=== PATIENT | male | born 1940 | race Two or more races ===

== ENCOUNTER → 2024-06-16 | Outpatient (CLI) | payer MEDICARE, MEDICAID, SELFPAY ==
[2024-06-16 09:38] LABS: Basophils % (Auto) 0 % (0-2.5); Eosinophils # (Auto) 0.2 Thou/mm3 (0.0-0.5); Eosinophils % (Auto) 3 % (0-10); Hematocrit 35.7 % (41.0-53.0); Hemoglobin 11.5 g/dL (13.5-16.0); Immature Granulocytes % (Auto) 0 % (0-0); Immature Granulocytes Auto 0.03 Thou/mm3 (0.00-0.00); Lymphocytes % (Auto) 28 % (10-50); Mean Corpuscular HGB Conc 32.2 g/dl (31.0-37.0); Mean Corpuscular Hemoglobin 28.6 pg (25.0-35.0); Mean Corpuscular Volume 89 fL (80-100); Monocytes # (Auto) 0.7 Thou/mm3 (0.0-0.8); Monocytes % (Auto) 10 % (0-12); Neutrophils # (Auto) 4.2 Thou/mm3 (1.8-7.7); Neutrophils % (Auto) 58 % (37-80); Nucleated Red Blood Cell % 0 /100 WBC (0); Platelet Count 157 Thou/mm3 (140-440); RDW Standard Deviation 45.1 fL (35.1-43.9); Red Blood Count 4.02 Miln/mm3 (4.50-5.90); White Blood Count 7.2 Thou/mm3 (3.8-10.6)
[2024-06-16 09:58] LABS: Glucose Estimated Average 194 mg/dL (80-131); Hemoglobin A1C 8.4 % Hgb (4.8-6.0)
[2024-06-16 10:02] LABS: Alanine Aminotransferase 17 U/L (10-49); Albumin, Serum 4.1 gm/dL (3.4-4.8); Alkaline Phosphatase 111 U/L (46-116); Anion Gap 6 (7-16); Aspartate Amino Transferase 11 U/L (0-34); BUN/Creatinine Ratio 28 Ratio (12-20); Bilirubin,Direct 0.1 mg/dL (0.0-0.3); Bilirubin,Total 0.3 mg/dL (0.3-1.2); Blood Urea Nitrogen 37 mg/dL (9-23); Calcium 8.5 mg/dL (8.3-10.6); Carbon Dioxide 24.1 mMol/L (20.0-31.0); Cardiac Risk Estimate 2.1 RATIO (4.0-6.7); Chloride 110 mMol/L (98-107); Cholesterol 75 mg/dL (132-200); Creatinine (Component) 1.3 mg/dL (0.6-1.3); Glucose 87 mg/dL (74-106); HDL Cholesterol 35 mg/dL (40-60); LDL Cholesterol,Calculated 14 mg/dL (0-130); Osmolality,Calculated 287 (275-295); Phosphorous 2.9 mg/dL (2.4-5.1); Potassium 5.3 mMol/L (3.4-5.1); Sodium 140 mMol/L (136-145); Total Protein 6.4 gm/dL (5.7-8.2); Triglycerides 128 mg/dL (30-150); eGFR 54 See Note
== END | disposition home or self-care (01) ==
PROVIDERS: PCP Family Medicine; Referring Provider Specialist; Visit Provider Specialist
DX: I11.9 Hypertensive heart disease without heart failure (principal); E11.9 Type 2 diabetes mellitus without complications; E78.2 Mixed hyperlipidemia
CPT/HCPCS: 36415; 80048; 80061; 80076; 83036; 84100; 85025

== ENCOUNTER → 2024-07-22 | Outpatient (CLI) | payer MEDICARE, MEDICAID, SELFPAY ==
--- NOTE | 2024-07-22 10:00 | XR_ITS ---
Examination: MRI cervical spine without intravenous contrast Date and time of exam: July 22, 2024 and 47 hours INDICATIONS: Neck pain radiating to the left shoulder numbness in the left hand beginning one year ago Technique: Multiple axial and sagittal sections of the cervical spine to been obtained. T2 weighted sagittal sections, TR 3, 270, TE 117 T1-weighted sagittal sections, TR 500, TE 11 T1-weighted axial sections, TR 607, TE 12, axial sections TR 18, TE 27 and T2 weighted transverse sections, TR 3920, TE 122. Findings: Reversal normal cervical lordosis Chronic wedging, mild, C4, C5, C6 Diffuse cervical disc desiccation Advanced disc narrowing C5-C6 No localized enlargement cervical cord C2-C3 advanced left neural foraminal stenosis C3-C4 uncinate process hypertrophy with advanced bilateral neural foraminal stenosis C4-C5 severe overall spinal stenosis, 5 mm central subarticular osteophyte disc complex indenting the ventral margin cervical cord with advanced bilateral neural foraminal stenosis C5-C6 severe spinal stenosis, 5 mm central subarticular osteophyte disc complex indenting the ventral margin cervical cord with advanced bilateral neural foraminal stenosis C6-C7 3 mm central subarticular osteophyte disc complex, advanced bilateral neural foraminal stenosis C7-T1 no disc protrusion IMPRESSION: Advanced degenerative disc disease C5-C6 C5, C5-C6 severe spinal stenosis as above
== END | disposition home or self-care (01) ==
PROVIDERS: PCP Orthopaedic Surgery Orthopaedic Trauma; Referring Provider Orthopaedic Surgery Orthopaedic Trauma; Visit Provider Orthopaedic Surgery Orthopaedic Trauma
DX: M50.322 Other cervical disc degeneration at C5-C6 level (principal); M48.02 Spinal stenosis, cervical region
CPT/HCPCS: 72141

== ENCOUNTER → 2024-08-09 | Outpatient (CLI) | payer MEDICARE, MEDICAID, SELFPAY ==
[2024-08-09 10:04] LABS: Collection Type, Urine Clean Catch
[2024-08-09 10:30] LABS: Basophils % (Auto) 0 % (0-2.5); Eosinophils # (Auto) 0.2 Thou/mm3 (0.0-0.5); Eosinophils % (Auto) 3 % (0-10); Hematocrit 35.8 % (41.0-53.0); Hemoglobin 11.8 g/dL (13.5-16.0); Immature Granulocytes % (Auto) 0 % (0-0); Immature Granulocytes Auto 0.02 Thou/mm3 (0.00-0.00); Lymphocytes # (Auto) 1.9 Thou/mm3 (1.0-4.8); Lymphocytes % (Auto) 26 % (10-50); Mean Corpuscular Hemoglobin 28.9 pg (25.0-35.0); Mean Corpuscular Volume 88 fL (80-100); Monocytes # (Auto) 0.7 Thou/mm3 (0.0-0.8); Monocytes % (Auto) 10 % (0-12); Neutrophils # (Auto) 4.4 Thou/mm3 (1.8-7.7); Neutrophils % (Auto) 61 % (37-80); Nucleated Red Blood Cell % 0 /100 WBC (0); Platelet Count 178 Thou/mm3 (140-440); RDW Standard Deviation 44.1 fL (35.1-43.9); Red Blood Count 4.08 Miln/mm3 (4.50-5.90); White Blood Count 7.3 Thou/mm3 (3.8-10.6)
[2024-08-09 10:35] LABS: Bilirubin,Urine Negative (Negative); Blood,Urine Trace (Negative); Clarity,Urine Clear (Clear/Hazy); Color,Urine Lt-Yellow (Lt Yel-Yel); Glucose, Urine 4+ (Negative); Ketones,Urine Negative (Negative); Leukocyte Esterase,Urine Negative (Negative); Nitrite,Urine Negative (Negative); Protein,Urine 1+ (Neg - Trace); RBC,Urine 5 /hpf (0-3); Specific Gravity,Urine 1.016 (1.001-1.035); Squamous Epithelial Cell,Urine 1 /hpf (0-5); Urobilinogen,Urine Negative mg/dL (0.0-1.0); WBC,Urine 1 /hpf (0-5)
[2024-08-09 10:46] LABS: Glucose Estimated Average 177 mg/dL (80-131); Hemoglobin A1C 7.8 % Hgb (4.8-6.0)
[2024-08-09 10:49] LABS: Parathyroid Hormone Intact 89.8 pg/ml (18.5-88.0)
[2024-08-09 10:55] LABS: Albumin, Serum 3.8 gm/dL (3.4-4.8); Anion Gap 8 (7-16); BUN/Creatinine Ratio 31 Ratio (12-20); Blood Urea Nitrogen 40 mg/dL (9-23); Calcium 8.7 mg/dL (8.3-10.6); Calcium (Corrected) 8.9 mg/dL (8.5-10.1); Carbon Dioxide 25.5 mMol/L (20.0-31.0); Chloride 109 mMol/L (98-107); Creatinine (Component) 1.3 mg/dL (0.6-1.3); Glucose 149 mg/dL (74-106); Osmolality,Calculated 295 (275-295); Phosphorous 3.4 mg/dL (2.4-5.1); Potassium 5.3 mMol/L (3.4-5.1); Sodium 142 mMol/L (136-145); eGFR 54 See Note
[2024-08-09 10:56] LABS: Vitamin D 25 Hydroxy Total 29.8 ng/mL (7.3-40.2)
== END | disposition home or self-care (01) ==
LOC: COPL 08:57
PROVIDERS: PCP Internal Medicine; Referring Provider Internal Medicine Nephrology; Visit Provider Internal Medicine Nephrology
DX: E11.22 Type 2 diabetes mellitus with diabetic chronic kidney disease (principal); N18.2 Chronic kidney disease, stage 2 (mild); E55.9 Vitamin D deficiency, unspecified
CPT/HCPCS: 36415; 80069; 81001; 82306; 83036; 83970; 85025

== ENCOUNTER → 2024-08-17 | Outpatient (CLI) | payer MEDICARE, SELFPAY ==
[2024-08-17 09:29] LABS: Prostate Specific Antigen 0.83 ng/mL (0-4.00)
== END | disposition home or self-care (01) ==
PROVIDERS: PCP Urology; Referring Provider Urology; Visit Provider Urology
DX: N40.1 Benign prostatic hyperplasia with lower urinary tract symptoms (principal)
CPT/HCPCS: 36415; 84153

== ENCOUNTER → 2024-09-27 | Outpatient (CLI) | payer MEDICARE, MEDICAID, SELFPAY ==
[2024-09-27 09:42] LABS: Albumin, Serum 3.8 gm/dL (3.4-4.8); Anion Gap 7 (7-16); BUN/Creatinine Ratio 26 Ratio (12-20); Blood Urea Nitrogen 36 mg/dL (9-23); Calcium 9.1 mg/dL (8.3-10.6); Calcium (Corrected) 9.3 mg/dL (8.5-10.1); Carbon Dioxide 25.5 mMol/L (20.0-31.0); Chloride 110 mMol/L (98-107); Creatinine (Component) 1.4 mg/dL (0.6-1.3); Glucose 185 mg/dL (74-106); Osmolality,Calculated 296 (275-295); Phosphorous 2.9 mg/dL (2.4-5.1); Potassium 5.2 mMol/L (3.4-5.1); Sodium 142 mMol/L (136-145); eGFR 49 See Note
[2024-09-27 11:15] LABS: Glucose Estimated Average 192 mg/dL (80-131); Hemoglobin A1C 8.3 % Hgb (4.8-6.0)
== END | disposition home or self-care (01) ==
LOC: COPL 08:38
PROVIDERS: PCP Family Medicine; Referring Provider Specialist; Visit Provider Specialist
DX: E11.9 Type 2 diabetes mellitus without complications (principal); I11.9 Hypertensive heart disease without heart failure
CPT/HCPCS: 36415; 80069; 83036

== ENCOUNTER → 2024-11-05 | Outpatient (BNVA) | payer MEDICARE, MEDICAID, SELFPAY | END | disposition home or self-care (01) | PROVIDERS: PCP Family Medicine; Referring Provider Family Medicine; Visit Provider Urology | DX: N40.1 Benign prostatic hyperplasia with lower urinary tract symptoms (principal); N13.8 Other obstructive and reflux uropathy; I12.9 Hypertensive chronic kidney disease with stage 1 through stage 4 chronic kidney disease, or unspecified chronic kidney disease; E11.22 Type 2 diabetes mellitus with diabetic chronic kidney disease; N18.30 Chronic kidney disease, stage 3 unspecified; E66.9 Obesity, unspecified; Z68.26 Body mass index [BMI] 26.0-26.9, adult; I25.10 Atherosclerotic heart disease of native coronary artery without angina pectoris; E78.00 Pure hypercholesterolemia, unspecified | CPT/HCPCS: 81003; 99212; G0463 ==

== ENCOUNTER → 2024-11-24 | Outpatient (CLI) | payer MEDICARE, MEDICAID, SELFPAY ==
[2024-11-24 08:03] LABS: Collection Type, Urine Clean Catch; Squamous Epithelial Cell,Urine 0 /hpf (0-5)
[2024-11-24 08:32] LABS: Basophils % (Auto) 0 % (0-2.5); Eosinophils # (Auto) 0.2 Thou/mm3 (0.0-0.5); Eosinophils % (Auto) 3 % (0-10); Hematocrit 36.7 % (41.0-53.0); Hemoglobin 12.1 g/dL (13.5-16.0); Immature Granulocytes % (Auto) 0 % (0-0); Immature Granulocytes Auto 0.03 Thou/mm3 (0.00-0.00); Lymphocytes # (Auto) 2.2 Thou/mm3 (1.0-4.8); Lymphocytes % (Auto) 29 % (10-50); Mean Corpuscular Hemoglobin 29.7 pg (25.0-35.0); Mean Corpuscular Volume 90 fL (80-100); Monocytes # (Auto) 0.8 Thou/mm3 (0.0-0.8); Monocytes % (Auto) 11 % (0-12); Neutrophils # (Auto) 4.2 Thou/mm3 (1.8-7.7); Neutrophils % (Auto) 56 % (37-80); Nucleated Red Blood Cell % 0 /100 WBC (0); Platelet Count 171 Thou/mm3 (140-440); RDW Standard Deviation 43.8 fL (35.1-43.9); Red Blood Count 4.08 Miln/mm3 (4.50-5.90); White Blood Count 7.5 Thou/mm3 (3.8-10.6)
[2024-11-24 08:43] LABS: Glucose Estimated Average 183 mg/dL (80-131)
[2024-11-24 08:45] LABS: Albumin, Serum 4.3 gm/dL (3.4-4.8); Anion Gap 9 (7-16); BUN/Creatinine Ratio 29 Ratio (12-20); Blood Urea Nitrogen 41 mg/dL (9-23); Calcium 8.5 mg/dL (8.3-10.6); Calcium (Corrected) 8.5 mg/dL (8.5-10.1); Carbon Dioxide 24.3 mMol/L (20.0-31.0); Chloride 110 mMol/L (98-107); Creatinine (Component) 1.4 mg/dL (0.6-1.3); Glucose 88 mg/dL (74-106); Osmolality,Calculated 294 (275-295); Phosphorous 3.3 mg/dL (2.4-5.1); Potassium 4.6 mMol/L (3.4-5.1); Sodium 143 mMol/L (136-145); eGFR 49 See Note
[2024-11-24 09:00] LABS: Bilirubin,Urine Negative (Negative); Blood,Urine Negative (Negative); Clarity,Urine Clear (Clear/Hazy); Color,Urine Colorless (Lt Yel-Yel); Glucose, Urine 4+ (Negative); Ketones,Urine Negative (Negative); Leukocyte Esterase,Urine Negative (Negative); Nitrite,Urine Negative (Negative); Protein,Urine Negative (Neg - Trace); RBC,Urine 2 /hpf (0-3); Specific Gravity,Urine 1.011 (1.001-1.035); Urobilinogen,Urine Negative mg/dL (0.0-1.0); WBC,Urine 1 /hpf (0-5)
== END | disposition home or self-care (01) ==
LOC: COPL 07:32
PROVIDERS: PCP Family Medicine; Referring Provider Internal Medicine Nephrology; Visit Provider Internal Medicine Nephrology
DX: E11.9 Type 2 diabetes mellitus without complications (principal); I25.10 Atherosclerotic heart disease of native coronary artery without angina pectoris; I10 Essential (primary) hypertension
CPT/HCPCS: 36415; 80069; 81001; 83036; 85025

== ENCOUNTER 2025-01-29 11:10 | Emergency (ER) | payer MEDICARE, MEDICAID, SELFPAY ==
[2025-01-29 11:14] VITALS: BMI 27.3
--- NOTE | 2025-01-29 11:22 | EKG_ITS ---
[facility] Test Date: 2025-01-29 Pat Name: GLORY ASKEWJAMESVENECIADepartment: Room: - Gender: Male Front Clerk: : 1940 Requested By: Bebe Sales Order Number: [id number] Reading MD: Bebe Sales Measurements Intervals [place] Rate: 65 P: 64 KS: 150 QRS: 38 QRSD: 134 T: 41 QT: 421 QTc: 438 Interpretive Statements SINUS RHYTHM WITH OCCASIONAL SUPRAVENTRICULAR PREMATURE COMPLEXES RIGHT BUNDLE BRANCH BLOCK [120+ ms QRS DURATION, UPRIGHT V1, 40+ ms S IN I/aVL/V4/V5/V6] No previous ECG available for comparison /store/S0/[id number].pdf
--- NOTE | 2025-01-29 11:22 | PD.EDDIZZY ---
ED Dizzyness RME/HPI General Chief Complaint: Dizziness Stated Complaint: DIZZINESS SINCE 1200 YESTERDAY, WORSE WAKING TODAY Time Seen by Provider: 01/29/25 11:22 Arrival date/time: 01/29/25 11:10 Limitations: no limitations RME / HPI RME / HPI Narrative: DR. WEEMS MAIN ED EVALUATION: 84-year-old male with past medical history of hypercholesterolemia and cardiac stents presents to the Emergency Department with complaint of mild dizziness since yesterday noon and reports worsening dizziness upon waking today at 8 AM. He denies any similar symptoms in the past. No known allergies. Denies alcohol, smoking, or drug use. Related Data Home Medications ?Medication ?Instructions ?Recorded ?Confirmed tamsulosin 0.4 mg capsule 0.4 mg PO QDAY 11/24/18 11/05/24 clopidogrel 75 mg tablet 1 tab PO DAILY 02/13/22 11/05/24 atorvastatin 80 mg tablet 80 mg PO QDAY 05/21/22 11/05/24 dapagliflozin propanediol 10 mg 10 mg PO QDAY 05/21/22 11/05/24 tablet (Farxiga) evolocumab 140 mg/mL subcutaneous See Rx Instructions .Route .COMPLEX 05/21/22 11/05/24 pen injector (Repatha SureClick) ferrous sulfate 325 mg (65 mg 325 mg PO TID 05/21/22 11/05/24 iron) tablet insulin glargine U-300 conc 300 36 unit subcut BID 05/21/22 11/05/24 unit/mL (1.5 mL) subcutaneous pen (Toujeo SoloStar U-300 Insulin) rivaroxaban 2.5 mg tablet (Xarelto) 2.5 mg PO BID 05/21/22 11/05/24 carvedilol 12.5 mg tablet 12.5 mg PO BID 10/07/22 11/05/24 finerenone 10 mg tablet (Kerendia) 10 mg PO QDAY 10/07/22 11/05/24 losartan 25 mg tablet 25 mg PO QDAY 10/07/22 11/05/24 pioglitazone 30 mg tablet 30 mg PO QDAY 10/07/22 11/05/24 sitagliptin phosphate 50 1 tab PO BID 10/07/22 11/05/24 mg-metformin 1,000 mg tablet (Janumet) Allergies Allergy/AdvReac Type Severity Reaction Status Date / Time ciprofloxacin Allergy Mild Nausea Verified 01/29/25 11:16 levofloxacin Allergy Mild Nausea Verified 01/29/25 11:16 Review of Systems Review of Systems Systems Reviewed: All systems reviewed, normal except as documented Past Medical History Past Medical History CARDIAC: Positive Cardiac Disorders, Coronary Artery Disease, Hypercholesterolemia and Hypertension GASTROINTESTINAL: Positive Gastrointestinal Disorders GENITOURINARY: Positive Genitourinary Disorders MUSCULOSKELETAL: Positive Musculoskeletal Disorders and Arthritis ENDOCRINE: Positive Endocrine Disorders and Diabetes Mellitus Type 2 Surgical History SURGICAL: Positive Coronary Stent (X3) Social History SMOKING STATUS: Never smoker SECOND HAND EXPOSURE: No SUBSTANCE USE: does not use ALCOHOL: Never ED Exam General Limitations: Present no limitations General appearance: Present alert and in no apparent distress Head Head exam: Present atraumatic, normocephalic and normal inspection Eye Eye exam: Present normal appearance, PERRL and EOMI ENT ENT exam: Present normal exam, normal oropharynx and mucous membranes moist Neck Neck exam: Present normal inspection, full ROM and trachea midline Chest Chest inspection: Present normal inspection and symmetric chest wall rise Respiratory Respiratory exam: Present normal lung sounds bilaterally Cardiovascular Cardiovascular exam: Present regular rate, normal rhythm and normal heart sounds Abdominal Exam Abdominal exam: Present soft and normal bowel sounds Extremities Exam Extremities exam: Present normal inspection and full ROM Back Exam Back exam: Present normal inspection and full ROM Neurological Exam Neurological exam: Present alert, oriented X3, CN II-XII intact and other (+dysdiadokinesia, unable to perform heel to gaines ) Psychiatric Psychiatric exam: Present normal affect and normal mood Skin Skin exam: Present warm, dry, intact and normal color Other Other exam information: NIH STROKE SCALE 1a. Level of Consciousness (Alert, drowsy, etc) [0 = Alert; 1 = Drowsy; 2 = Stuporous; 3 = Coma] = 0 1b. LOC Questions: (Month, age) [0 = Answers both correctly; 1 = Answers one correctly; 2 = Incorrect] = 0 1c. LOC Commands (Open/ close eyes, make fist/ let go) [0 = Obeys both correctly; 1 = Obeys one correctly; 2 = Incorrect] = 0 2. Best Gaze (Eyes open - patient follows examiner?s finger or face) [0 = Normal; 1 = Partial gaze palsy; 2 = Forced deviation] = 0 3. Visual Zimmerman (Introduce visual stimulus/ threat to pt?s visual field quadrants) [0 = No visual loss; 1 = Partial Hemianopia; 2 = Complete Hemianopia; 3 = Bilateral Hemianopia (Blind)] = 0 4. Facial Paresis (Show teeth, raise eyebrows and squeeze eyes shut) [0 = Normal; 1 = Minor; 2 = Partial; 3 = Complete] = 0 5a. Left Arm Motor Function (Elevate arm to 90 degrees if patient is sitting, 45 degrees if supine) [0 = No drift; 1 = Drift; 2 = Can?t resist gravity; 3 = No effort against gravity; 4 No movement; X = Untestable (Joint fusion or limb amp)] = 0 5b. Right Arm Motor Function (Elevate arm to 90 degrees if patient is sitting, 45 degrees if supine) [0 = No drift; 1 = Drift; 2 = Can?t resist gravity; 3 = No effort against gravity; 4 = No movement; X = Untestable (Joint fusion or limb amp)] = 0 6a. Left Leg Motor Function (Elevate 30 degrees with patient supine) [0 = No drift; 1 = Drift; 2 = Can?t resist gravity; 3 = No effort against gravity; 4 = No movement; X = Untestable (Joint fusion or limb amp)] = 0 6b.? Right Leg Motor Function (Elevate 30 degrees with patient supine) [0 = No drift; 1 = Drift; 2 = Can?t resist gravity; 3 = No effort against gravity; 4 = No movement; X = Untestable (Joint fusion or limb amp)] = 0 7. Limb Ataxia (Finger-nose, heel down gaines) [0 = No ataxia; 1 = Present in one limb; 2 = Present in two limbs] = 0 8. Sensory (Pin prick to face, arm, trunk, and leg; compare side to side) [0 = Normal; 1 = Partial loss; 2 = Severe loss] = 0 9. Best Language (Name item, describe a picture and read sentences) [0 = No aphasia; 1 = Mild to moderate aphasia; 2 = Severe aphasia; 3 = Mute] = 0 10. Dysarthria (Evaluate speech clarity by patient repeating listed words) [0 = Normal articulation; 1 = Mild to moderate slurring of words; 2 = Near to unintelligible or worse; X = Intubated or other physical barrier] = 0 11. Extinction and Inattention (Use information form prior testing to identify neglect or double simultaneous stimuli testing) [0 = No neglect; 1 = Partial neglect; 2 = Complete neglect] = 0 TOTAL SCORE = 0 Course Course Course Narrative: 1121: Stroke alert initiated. Orders made at this time are congruent stroke protocol. Quality Measures none Orders Category Date Time Status Bedside Blood Glucose NOW Care 01/29/25 11:22 Active Retail Business Manager NOW Care 01/29/25 11:22 Active Continuous Pulse Oximetry NOW Care 01/29/25 11:22 Completed EKG (ED ONLY) *Do not use* NOW Care 01/29/25 11:22 Completed In and Out Catheter NEEDED Care 01/29/25 11:22 Active Insert IV NOW Care 01/29/25 11:22 Active NIH Stroke Scale now Care 01/29/25 11:22 Active NPO NOW Care 01/29/25 11:22 Active Neuro Check Q1HR Care 01/29/25 11:22 Active Nurse Swallow Screen x1 Care 01/29/25 11:22 Active Consult to Neurology / Tele-Neurology Stat Cons 01/29/25 11:[address] angio stroke protocol Stat Exams 01/29/25 11:[address] stroke protocol Stat Exams 01/29/25 11:22 Completed EKG (ED Only) Stat Exams 01/29/25 11:22 Draft CBC Stat Lab 01/29/25 11:31 Completed Comprehensive Metabolic Panel Stat Lab 01/29/25 11:31 Completed Drug Screen,Urine Stat Lab 01/29/25 11:22 Ordered Magnesium Stat Lab 01/29/25 11:31 Completed Partial Thromboplastin Time Stat Lab 01/29/25 11:31 Completed Prothrombin Time with INR Stat Lab 01/29/25 11:31 Completed Troponin I Stat Lab 01/29/25 11:31 Completed Urinalysis Stat Lab 01/29/25 11:22 Ordered Urine Culture Stat Lab 01/29/25 11:22 Ordered Aspirin Med 01/29/25 12:43 Discontinued 325 mg PO X1 ONE Atorvastatin Calcium [Lipitor] Med 01/29/25 12:43 Discontinued 80 mg PO X1 ONE Clopidogrel [Plavix] Med 01/29/25 12:43 Discontinued 300 mg PO X1 ONE Metoclopramide Inj [Reglan Inj] Med 01/29/25 11:24 Discontinued 5 mg IVP NOW ONE Oxygen Delivery NOW RT 01/29/25 11:22 Active Vital Signs Vital signs: Vital Signs Temperature 98.2 F 01/29/25 11:25 Pulse Rate 66 01/29/25 11:25 Respiratory Rate 18 01/29/25 11:25 Blood Pressure 144/64 H 01/29/25 11:25 Pulse Oximetry (%) 97 01/29/25 11:25 Oxygen Delivery Method Room Air 01/29/25 11:25 Dizziness MDM Narrative MDM Narrative:: I, Tatiana Horne, am scribing for and in the presence of Dr. Weems. Patient is an 81-year-old male lives in the emergency department with concerns for acute onset dizziness that started yesterday at approximately 12 PM. Vital signs and exam as above. Concern for acute stroke, vertigo, metabolic arrangement among others. Ordered labs CT brain, CT angio of the head and neck. Patient was stroke alerted, he is not a tenecteplase candidate. Patient has a history of hypertension, hyperlipidemia and coronary artery disease. Teleneurologist evaluated patient, agrees that patient is not a tenecteplase candidate, recommends admission for stroke workup CT angio with the following findings. Occlusion proximal right internal carotid artery, internal carotid artery stent on the right is patent as well as distal right internal carotid artery. 90% stenosis left carotid bifurcation origin left internal carotid artery, left internal carotid artery stent is patent and the distal left internal carotid artery does fill. 60% stenosis origin right vertebral artery. Given these findings I initiated transfer to a facility with neurointerventional capabilities. 12:30p discussed case with [facility] neurointerventionalist Dr Magana, given concerning findings on patient CT angio recommends transfer to [facility] to be admitted to the neuro ICU. Recommends we provide patient with aspirin Plavix and atorvastatin. Discussed case with Dr. Vieyra ED physician at [facility], kindly accepted patient for admission. Updated patient and his adult son at bedside. Patient is hemodynamically stable not in distress symptoms are improving. Both are in agreement with transfer for higher level of care to [facility]. Patient data External records reviewed:: [facility] previous records Clinical information provided by:: patient Social determinants that could affect healthcare access:: none Patient has the following chronic illnesses:: hypercholesterolemia and cardiac stents How is presenting disease/condition affected by chronic disease/condition?: exacerbated by Evaluation data The following diagnostics were reviewed and interpreted by me:: lab results, radiology exam(s) and EKG tracing(s) Lab and/or radiology exams considered but not ordered:: none Interpretation Summary: My interpretation: EKG performed at 1149 hours, sinus rhythm, rate 65, normal intervals, occasional PVCs, no cardiac alert Procedure(s): CT stroke protocol Accession Number(s): [id number] cc: Raffi Carranza MD; Bebe Weems MD~ Examination: CT brain head without contrast. 2-D sagittal coronal reconstructions Date and time of exam:January 29, T2 thousand 25, 1128 hrs. Indications: Stroke alert, onset blurred vision focal neurologic deficit today CTDI: vol (mGy):50 DLP: (mGycm):970 Technique: Multiple CT axial sections of the brain have been obtained, 5 mm slice thickness. Contrast has not been administered. 2-D sagittal, coronal reconstructions have been obtained Low dose protocols were performed. One or more of the following dose reduction techniques were used; automated exposure control, adjustment of the mA and/or KV according to patient size, use of iterative reconstruction technique. Findings: No significant ventricular enlargement. Intra-axial or extra-axial hemorrhage density is not seen. No mass effect or midline shift Basal cisterns are not remarkable. Fourth ventricle is midline. Cranial vault intact. Impression: Negative for acute hemorrhage, mass effect or midline shift Dictated By: Raffi Carranza MD Procedure(s): CT angio stroke protocol Accession Number(s): [id number] cc: Raffi Carranza MD; Bebe Weems MD~ Examination: CTA carotids with intravenous contrast CTA brain, head with intravenous contrast. 2-D sagittal, coronal reconstructions. 3-D reconstructions. Exam date and time: January 29, 2025, 1132 hrs. Indications: Stroke alert, onset focal neurologic deficit today CTDI: vol (mGy) 18.3 DLP: (mGycm) 419 Technique: Multiple CTA axial brain, head carotid images post intravenous contrast injection 75 cc, Isovue-370. 2-D sagittal, coronal reconstructions. 3-D reconstructions, 3-D post processing including vascular maximum intensity projection images. Low dose protocols were performed. One or more of the following dose reduction techniques were used; automated exposure control, adjustment of the mA and/or KV according to patient size, use of iterative reconstruction technique. Findings: Severe calcification right carotid bifurcation Occlusion proximal right internal carotid artery, stent noted in the proximal right internal carotid artery which is patent as well as the distal internal carotid artery on the right Severe calcification left carotid bifurcation, 90% plus stenosis at the carotid bifurcation and origin of the left internal carotid artery Carotid stent is depicted which is opacified in the distal internal carotid artery is intact Dominant left vertebral artery, 60% stenosis origin right vertebral artery No cerebral large vessel arterial occlusions or thrombus Impression: Occlusion proximal right internal carotid artery, internal carotid artery stent on the right is patent as well as distal right internal carotid artery 90% stenosis left carotid bifurcation origin left internal carotid artery, left internal carotid artery stent is patent and the distal left internal carotid artery does fill 60% stenosis origin right vertebral artery Recommend correlation with carotid Doppler sonography No cerebral large vessel arterial occlusions Dictated By: Raffi Carranza MD Medications / Prescriptions Medications or Prescriptions considered but not ordered:: none Medication administrations:: Medication Administration History Discontinued Medications Aspirin (Aspirin 325 Mg Tablet) 325 mg PO X1 ONE Stop: 01/29/25 12:44 Atorvastatin Calcium (Atorvastatin Calcium 20 Mg Tablet) 80 mg PO X1 ONE Stop: 01/29/25 12:44 Clopidogrel Bisulfate (Clopidogrel Bisulfate 75 Mg Tablet) 300 mg PO X1 ONE Stop: 01/29/25 12:44 Metoclopramide HCl (Metoclopramide Inj 5 Mg/Ml Vial 2 Ml) 5 mg IVP NOW ONE; Protocol Stop: 01/29/25 11:25 Last Admin: 01/29/25 12:25 Dose: 5 mg Documented By: VL see above Consultations Consultation(s) initiated? (list below): Yes Consultation #1 (Physician, Specialty, Details): I called transfer nurse to initiate neuro IR transfer. Time: 12:15 Consultation #2 (Physician, Specialty, Details): Discussed test HPI, PMHx, lab, radiology results and/or management with neuro rodding machine tender Dr. Magana from [place]. Recommends transfer and the following medications: Lipitor 80 mg, Aspirin 325 mg, and Plavix 300 mg. Time: 12:36 Consultation #3 (Physician, Specialty, Details): Discussed test HPI, PMHx, lab, radiology results and/or management with Dr. Sam, ER doctor from [place]. Accept the patient for transfer ER to ER. Time: 12:40 Diagnosis Dizziness Differential Diagnosis: other (benign paroxysmal positional vertigo (BPPV), transient ischemic attack (TIA), and orthostatic hypotension) Most likely diagnosis given after review of the tests above:: stroke Admission Indicated Admission indicated?: not indicated Explain why admission is indicated or not indicated:: Patient needs higher level of care and will be transferred. Admission Request Was there a request for admission?: No Disposition Plan Disposition Plan: Transfer Critical Care Time Critical Care Time Critical Care Time: Yes Total Critical Care Time (min.): 40 Attestation: The high probability of sudden, clinically significant deterioration in the patient?s condition required the highest level of my preparedness to intervene urgently. The services I provided to this patient were to treat and/or prevent clinically significant deterioration. Services included the following: chart data review, reviewing nursing notes and/or old charts, documentation time, data processing systems consultant collaboration regarding findings and treatment options, medication orders and management, direct patient care, vital sign assessments and ordering, interpreting and reviewing diagnostic studies and lab tests. Aggregate critical care time includes only time during which I was engaged in work directly related to the patient?s care, as described above, whether at bedside or elsewhere in the Emergency Department. It did not include time spent performing other reported procedures or the services of residents, students, nurses or physician assistants. Discharge Plan Plan Patient Disposition: [facility] Facility Pt Being Transferred to: Other-Specify in comment Service Needed for Transfer: Interventionalist Prescriptions/Referrals Prescriptions/Med Rec: No Action tamsulosin 0.4 mg capsule 0.4 mg PO QDAY clopidogrel 75 mg tablet 1 tab PO DAILY Patient Comments: TOME FRANKLIN TABLETA TODOS LOS D atorvastatin 80 mg Tablet 80 mg PO QDAY ferrous sulfate 325 mg (65 mg iron) Tablet 325 mg PO TID Farxiga 10 mg Tablet 10 mg PO QDAY Toujeo SoloStar U-300 Insulin 300 unit/mL (1.5 mL) Insulin Pen 36 unit SUBCUT BID Repatha SureClick 140 mg/mL Pen Injector See Rx Instructions .ROUTE .COMPLEX Rx Instructions: 140 mg subcutaneously Xarelto 2.5 mg Tablet 2.5 mg PO BID carvedilol 12.5 mg tablet 12.5 mg PO BID Patient Comments: TOME FRANKLIN TABLETA DOS VECES AL D A CON ALIMENTO FOR 90 DAYS losartan 25 mg tablet 25 mg PO QDAY Patient Comments: TOME FRANKLIN TABLETA TODOS LOS D FOR 30 DAYS pioglitazone 30 mg tablet 30 mg PO QDAY Patient Comments: TOME FRANKLIN TABLETA TODOS LOS D FOR 90 DAYS Janumet 50-1,000 mg tablet 1 tab PO BID Patient Comments: TOME FRANKLIN TABLETA DOS VECES AL D A CON LAS COMIDAS FOR 90 DAYS Kerendia 10 mg tablet 10 mg PO QDAY Patient Comments: TOME FRANKLIN TABLETA TODOS LOS D FOR 90 DAYS Referrals: No Primary/Family,Physician [Primary Care Provider] - In 1 week Problem List Clinical Impression: Stroke Patient/Caregiver Discharge Instructions Print Language: Faroese Stand Alone Forms: [place] Award Info., Patient Portal Info Letter
[2025-01-29 11:25] VITALS: BP 144/64; PULSE 66; RESP 18; TEMP 36.8; O2SAT 97
--- NOTE | 2025-01-29 11:43 | PD.TNEURO ---
Tele Neuro Consultation Consultation Date 01/29/25 Most Recent Vital Signs Last Vital Signs Temp 98.2 F 01/29/25 11:25 Pulse 66 01/29/25 11:25 Resp 18 01/29/25 11:25 BP 144/64 H 01/29/25 11:25 Pulse Ox 97 01/29/25 11:25 O2 Del Method Room Air 01/29/25 11:25 Consultation Narrative [facility] Tele[facility]rology Consult [facility] Patient Name:???Alonso Pedroza Date of :???1940 Identification Number:??? Date of Service:???01/29/2025 11:23:52 Diagnosis:?R42 - Dizziness/ Vertigo/ Giddiness Impression: ?Patient is an 84 year old man with PMHX of diabetes, hypertension, no prior strokes. He presents to ED for dizziness, generalized weakness, blurred vision since yesterday. LKN at 1200 PST. Plavix and xarelto listed in medication list, patient cannot confirm nor aware of names of his medications. ? ?CT head was performed, no acute findings on my review. ? ?The patient was not a candidate for IV thrombolytics due to LKN > 4.5 hrs ago. ? ?Recommend further stroke workup as below. Our recommendations are outlined below. Recommendations: ? Stroke/Telemetry Floor ? Neuro Checks (Q4) ? Bedside Swallow Eval ? DVT Prophylaxis ? IV Fluids, Normal Saline ? Head of Bed 30 Degrees ? Euglycemia and Avoid Hyperthermia (PRN Acetaminophen) ? Hold Anticoagulation for Now ?MRI head without contrast ?CTA head and neck ordered stat and pending to rule out LVO ?Hold blood thinners until MRI head can rule out stroke ?Continue plavix ?Statin for LDL < 70 ?TTE echo ?Telemetry to screen for pAFib, if negative consider further cardiac event monitor ?Labs: TSH, HgA1c, lipid profile ?Smoking cessation if applicable ?Diabetes control Hg A1c < 6/5 % skilled nursing if applicable Sign Out: ? Discussed with Emergency Department Provider Advanced Imaging:Advanced imaging has been ordered. Results pending. Metrics: Last Known Well: 01/28/2025 12:00:00 Dispatch Time: 01/29/2025 11:23:52 Arrival Time: 01/29/2025 11:14:00 Initial Response Time: 01/29/2025 11:24:43Symptoms: dizziness. Initial patient interaction: 01/29/2025 11:26:25 NIHSS Assessment Completed: 01/29/2025 11:36:47Patient is not a candidate for Thrombolytic. Thrombolytic Medical Decision: 01/29/2025 11:36:51Patient was not deemed candidate for Thrombolytic because of following reasons: LKW outside 4.[address] Head: I personally reviewed all the CT images that were available to me and it showed: no acute findings Primary Provider Notified of Diagnostic Impression and Management Plan on: 01/29/2025 11:41:41 History of Present Illness:Patient is a 84 year old Male. Patient was brought by private transportation with symptoms of dizziness. Patient is an 84 year old man with PMHX of diabetes, hypertension, no prior strokes. He presents to ED for dizziness, generalized weakness, blurred vision since yesterday. JAVID at 1200 PST. Plavix and xarelto listed in medication list, patient cannot confirm nor aware of names of his medications. ? Past Medical History: ?Hypertension ?Diabetes Mellitus ?There is no history of Stroke Medications: Anticoagulant use:??Yes?xarelto listed Antiplatelet use:?Yes?plavix Reviewed EMR for current medications Allergies:? Reviewed Social History: Drug Use: No Family History: There is no family history of premature cerebrovascular disease pertinent to this consultation ROS : 14 Points Review of Systems was performed and was negative except mentioned in HPI. Past Surgical History: There Is No Surgical History Contributory To Today?s Visit ? Examination: BP(138/66),?Pulse(70), 1A: Level of Consciousness - Alert; keenly responsive?+ 0 1B: Ask Month and Age - Both Questions Right?+ 0 1C: Blink Eyes & Squeeze Hands - Performs Both Tasks?+ 0 2: Test Horizontal Extraocular Movements - Normal?+ 0 3: Test Visual Zimmerman - No Visual Loss?+ 0 4: Test Facial Palsy (Use Grimace if Obtunded) - Normal symmetry?+ 0 5A: Test Left Arm Motor Drift - No Drift for 10 Seconds?+ 0 5B: Test Right Arm Motor Drift - No Drift for 10 Seconds?+ 0 6A: Test Left Leg Motor Drift - No Drift for 5 Seconds?+ 0 6B: Test Right Leg Motor Drift - No Drift for 5 Seconds?+ 0 7: Test Limb Ataxia (FNF/Heel-Nettles) - No Ataxia?+ 0 8: Test Sensation - Normal; No sensory loss?+ 0 9: Test Language/Aphasia - Normal; No aphasia?+ 0 10: Test Dysarthria - Normal?+ 0 11: Test Extinction/Inattention - No abnormality?+ 0 NIHSS Score:?0 Pre-Morbid Modified [place] Scale:0 Points = No symptoms at all Spoke with :?Dr Bebe Medeiros This consult was conducted in real time using interactive audio and video technology. Patient was informed of the technology being used for this visit and agreed to proceed. Patient located in hospital and provider located at home/office setting. Patient is being evaluated for possible acute neurologic impairment and high probability of imminent or life-threatening deterioration. I spent total of 30 minutes providing care to this patient, including time for face to face visit via telemedicine, review of medical records, imaging studies and discussion of findings with providers, the patient and/or family. Dr Howard Be [facility] For Inpatient follow-up with [facility] physician please call [facility] at . As we are not an outpatient service for any post hospital discharge needs please contact the hospital for assistance. If you have any questions for the [facility] physicians or need to reconsult for clinical or diagnostic changes please contact us via [facility] at . ?
[2025-01-29 11:57] VITALS: PULSE 62; RESP 99
[2025-01-29 12:12] LABS: Basophils # (Auto) 0.0 Thou/mm3 (0.0-0.2); Basophils % (Auto) 0 % (0-2.5); Eosinophils # (Auto) 0.1 Thou/mm3 (0.0-0.5); Eosinophils % (Auto) 1 % (0-10); Hematocrit 34.6 % (41.0-53.0); Hemoglobin 11.0 g/dL (13.5-16.0); Immature Granulocytes Auto 0.03 Thou/mm3 (0.00-0.00); Lymphocytes # (Auto) 1.5 Thou/mm3 (1.0-4.8); Lymphocytes % (Auto) 22 % (10-50); Mean Corpuscular HGB Conc 31.8 g/dl (31.0-37.0); Mean Corpuscular Hemoglobin 29.3 pg (25.0-35.0); Mean Corpuscular Volume 92 fL (80-100); Monocytes # (Auto) 0.6 Thou/mm3 (0.0-0.8); Monocytes % (Auto) 8 % (0-12); Neutrophils # (Auto) 4.9 Thou/mm3 (1.8-7.7); Neutrophils % (Auto) 68 % (37-80); Nucleated Red Blood Cell # 0.00 Thou/mm3 (0.00-0.00); Nucleated Red Blood Cell % 0 /100 WBC (0); Platelet Count 159 Thou/mm3 (140-440); RDW Standard Deviation 43.9 fL (35.1-43.9); Red Blood Count 3.76 Miln/mm3 (4.50-5.90); White Blood Count 7.1 Thou/mm3 (3.8-10.6)
[2025-01-29 12:24] LABS: INR 1.1 (0.9-1.3); Partial Thromboplastin Time 25.8 Seconds (22.0-36.0); Prothrombin Time 11.9 Seconds (9.0-12.2)
[2025-01-29] MEDS: METOCLOPRAMIDE INJ 5 MG/ML VIAL 2 ML IVP (12:25)
--- NOTE | 2025-01-29 12:28 | PC.CC ---
Addendum entered by Diamante Chaves RN 01/29/25 13:46: 1345 sent paperwork to [facility] through [employer]. Called [facility], spoke to Kaylah and she confirmed that she received the paperwork. Addendum entered by Diamante Chaves RN 01/29/25 13:39: 1338 clinicals faxed to [facility] ER. late note 1229 clinicals faxed to [facility] Addendum entered by Diamante Chaves RN 01/29/25 13:32: 1321 received call from [facility], spoke to Irving inquiring about ETA. ETA notified. Addendum entered by Diamante Chaves RN 01/29/25 13:30: 1300 Made 2 transfer packets. 1 for [facility] with CD inside and 1 for [facility]. Completed all signatures. Gave transfer packets to charge nurse and number to call for report is on tracker. Addendum entered by Diamante Chaves RN 01/29/25 13:30: 1241 called [facility], spoke to Dominik regarding accepting info. Pt is accepted at [facility] for ED to ED transfer. Accepted by Esteban Olivas/ ER physician, Dr. Magana/Neuro IR. Report can be called at [phone]. 1238 Received call from Caroline with [employer], ETA is 1255. 1235 received call from [facility], spoke to Irving. He stated he has his ER provider on the line and want to speak to Dr. Medeiros. Call transferred. 1232 called [facility], spoke to Caroline to setup the transport. She stated she will call back with ETA. Addendum entered by Diamante Chaves RN 01/29/25 13:15: 1219 called [facility], spoke to Irving and initiated the transfer. He connected the call to ER. ER wanted to speak with Dr. Medeiros conference call connected. Dr. Medeiros was connected to Neuro IR Dr. Magana for peer to peer. Original Note: 1215 received call from ER pt needs stat transfer for hemorrhagic stroke needs neuro IR.
[2025-01-29 12:38] LABS: Alanine Aminotransferase 9 U/L (10-49); Albumin, Serum 3.6 gm/dL (3.4-4.8); Albumin/Globulin Ratio 1.4 (1.2-2.2); Alkaline Phosphatase 98 U/L (46-116); Anion Gap 9 (7-16); Aspartate Amino Transferase 12 U/L (0-34); BUN/Creatinine Ratio 19 Ratio (12-20); Bilirubin,Total 0.5 mg/dL (0.3-1.2); Blood Urea Nitrogen 31 mg/dL (9-23); Calcium 8.2 mg/dL (8.3-10.6); Calcium (Corrected) 8.5 mg/dL (8.5-10.1); Carbon Dioxide 24.4 mMol/L (20.0-31.0); Chloride 108 mMol/L (98-107); Creatinine (Component) 1.6 mg/dL (0.6-1.3); Estimated Creatinine Clearance 27.0 mL/min (>60); Globulin 2.6 gm/dL (2.3-3.5); Glucose 314 mg/dL (74-106); Magnesium 1.9 mg/dL (1.6-2.6); Osmolality,Calculated 299 (275-295); Potassium 5.1 mMol/L (3.4-5.1); Sodium 141 mMol/L (136-145); Total Protein 6.2 gm/dL (5.7-8.2); Troponin I < 0.020 ng/mL (0.0-0.045); eGFR 42 See Note
[2025-01-29 12:42] VITALS: BP 148/71; PULSE 62; RESP 26; TEMP 36.5; O2SAT 98
[2025-01-29] MEDS: ATORVASTATIN CALCIUM 20 MG TABLET 80 MG PO (13:19)
--- NOTE | 2025-01-29 13:34 | PC.NURSE ---
PATIENT CAME IN TO ED FOR DIZZINESS AND BURRED VISION THAT STARTED YESTERDAY AROUND 1200. PATIENT WAS TREATED AT STROKE ALERT, NOT A CANDIDATE FOR TNK PER [facility] PROVIDER. PATIENT HAS HISTORY OF DIABETES, HYPERTENSION AND STENT PLACEMENT X3 BUT NOT TOO SURE EXACTLY WHERE. PATIENT DENIED CHEST PAIN OR SHORTNESS OF BREATH. 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 PATIENT TRANSFERRED TO [facility] WITH REACH AT BED SIDE WELL. PATIENT ALERT AND ORIENTED X4. ALL VITALS STABLE AT BEDSIDE. PATIENT GIVEN AL PO MEDS ORDERED BY DR. WEEMS BEFORE TRANSFER. REPORT CALLED TO SARAH TRIPP AT [facility]. NO FURTHER QUESTIONS.
== END 2025-01-29 13:45 | disposition short-term general hospital (02) ==
PROVIDERS: Emergency Provider Emergency Medicine
DX: I63.9 Cerebral infarction, unspecified (principal); I65.23 Occlusion and stenosis of bilateral carotid arteries; R29.701 NIHSS score 1; I49.1 Atrial premature depolarization; I45.10 Unspecified right bundle-branch block; E78.00 Pure hypercholesterolemia, unspecified; I10 Essential (primary) hypertension; I25.10 Atherosclerotic heart disease of native coronary artery without angina pectoris; Z95.5 Presence of coronary angioplasty implant and graft; Z79.02 Long term (current) use of antithrombotics/antiplatelets; Z79.01 Long term (current) use of anticoagulants; Z75.1 Person awaiting admission to adequate facility elsewhere
CPT/HCPCS: 36415; 70450; 70496; 70498; 80053; 80307; 81001; 83735; 84484; 85025; 85610; 85730; 87086; 93005; 96374; A4649; J2765; Q9967; A9270

== ENCOUNTER → 2025-03-23 | Outpatient (CLI) | payer MEDICARE, MEDICAID, SELFPAY ==
[2025-03-23 09:45] LABS: Basophils # (Auto) 0.0 Thou/mm3 (0.0-0.2); Basophils % (Auto) 0 % (0-2.5); Eosinophils # (Auto) 0.2 Thou/mm3 (0.0-0.5); Eosinophils % (Auto) 2 % (0-10); Hematocrit 35.7 % (41.0-53.0); Hemoglobin 11.4 g/dL (13.5-16.0); Immature Granulocytes Auto 0.06 Thou/mm3 (0.00-0.00); Lymphocytes # (Auto) 2.2 Thou/mm3 (1.0-4.8); Lymphocytes % (Auto) 27 % (10-50); Mean Corpuscular HGB Conc 31.9 g/dl (31.0-37.0); Mean Corpuscular Hemoglobin 29.2 pg (25.0-35.0); Mean Corpuscular Volume 91 fL (80-100); Monocytes # (Auto) 0.8 Thou/mm3 (0.0-0.8); Monocytes % (Auto) 9 % (0-12); Neutrophils # (Auto) 4.9 Thou/mm3 (1.8-7.7); Neutrophils % (Auto) 60 % (37-80); Nucleated Red Blood Cell # 0.00 Thou/mm3 (0.00-0.00); Nucleated Red Blood Cell % 0 /100 WBC (0); Platelet Count 188 Thou/mm3 (140-440); RDW Standard Deviation 43.9 fL (35.1-43.9); Red Blood Count 3.91 Miln/mm3 (4.50-5.90); White Blood Count 8.2 Thou/mm3 (3.8-10.6)
[2025-03-23 09:52] LABS: Glucose Estimated Average 200 mg/dL (80-131); Hemoglobin A1C 8.6 % Hgb (4.8-6.0)
[2025-03-23 09:59] LABS: Alanine Aminotransferase 19 U/L (10-49); Albumin, Serum 3.7 gm/dL (3.4-4.8); Alkaline Phosphatase 101 U/L (46-116); Anion Gap 7 (7-16); Aspartate Amino Transferase 14 U/L (0-34); BUN/Creatinine Ratio 22 Ratio (12-20); Bilirubin,Direct 0.1 mg/dL (0.0-0.3); Bilirubin,Total 0.4 mg/dL (0.3-1.2); Blood Urea Nitrogen 28 mg/dL (9-23); Calcium 8.4 mg/dL (8.3-10.6); Carbon Dioxide 23.0 mMol/L (20.0-31.0); Cardiac Risk Estimate 1.8 RATIO (4.0-6.7); Chloride 111 mMol/L (98-107); Cholesterol 55 mg/dL (132-200); Creatinine (Component) 1.3 mg/dL (0.6-1.3); Glucose 202 mg/dL (74-106); HDL Cholesterol 31 mg/dL (40-60); LDL Cholesterol,Calculated 7 mg/dL (0-130); Osmolality,Calculated 292 (275-295); Phosphorous 2.9 mg/dL (2.4-5.1); Potassium 5.0 mMol/L (3.4-5.1); Sodium 141 mMol/L (136-145); Total Protein 6.5 gm/dL (5.7-8.2); Triglycerides 87 mg/dL (30-150); eGFR 53 See Note
== END | disposition home or self-care (01) ==
LOC: COPL 08:30
PROVIDERS: PCP Family Medicine; Referring Provider Specialist; Visit Provider Specialist
DX: E78.2 Mixed hyperlipidemia (principal); I11.9 Hypertensive heart disease without heart failure
CPT/HCPCS: 36415; 80048; 80061; 80076; 83036; 84100; 85025